=== PATIENT | male | born 1960 | race Caucasian/White ===

== ENCOUNTER → 2017-04-01 | Outpatient (CLI) | payer BC | END | disposition home or self-care (01) | LOC: GMAB 11:19 | PROVIDERS: ATTEND Family Medicine | DX: Z00.00 Encounter for general adult medical examination without abnormal findings (principal) ==

== ENCOUNTER → 2018-02-17 | Outpatient (CLI) | payer BC ==
--- NOTE | 2018-02-18 09:34 | MRI ---
EXAM DESCRIPTION: Abdomen w/wo Contrast CLINICAL HISTORY: 57 years Male, CIRRHOSIS OF LIVER COMPARISON: None. TECHNIQUE: MRI of the liver was performed without and with gadolinium contrast. FINDINGS: Coronal images show elevated left hemidiaphragm and enlarged spleen. Spleen measures 17.9 cm in length with no focal splenic lesion. Liver is smaller measuring 15.9 cm in length. Clinical history is hepatic cirrhosis. Normal orientation of the mesenteric vessels with normal bowel loops. Normal appearance the kidneys. No abnormality of the spine. Gallbladder is distended and fluid-filled with multiple small stones in the region of the neck. There is a small amount of fluid around the right lobe of the liver. Gallbladder wall appears high in signal intensity suggesting gallbladder edema. Acute cholecystitis must be considered with this appearance although cirrhosis with ascites might cause the same appearance. Prominent common hepatic duct measures 8 mm but this appears to taper distally through the head of the pancreas. No intraductal stone is evident. No significant intrahepatic bile duct dilatation. No edema around the pancreas. Positive flow void in the portal vein. Splenic vein appears somewhat small especially for the size of the spleen. Tiny renal cysts are present. No focal liver lesion to suggest complicating neoplasm. Stones are seen in the gallbladder neck but not in the cystic duct. Small amount of fluid around liver and spleen is noted and there are edematous changes around the second and third portions of the duodenum. Dual phase axial and coronal T1 gradient echo images are obtained. Signal loss is not significant in the hepatic parenchyma on the opposed phase images. No restricted diffusion in the liver. ADC mapping is negative. Pre and postcontrast images are evaluated. In the arterial phase, there is normal renal enhancement with normal upper abdominal arterial enhancement. Early moire pattern of the spleen is normal. Normal enhancement of the pancreas. No focal arterialization within the liver. Portal venous phase images show normal hepatic parenchymal enhancement. Normal enhancement of portal vein and hepatic veins. Three-minute delay images show normal visceral enhancement of liver, spleen, kidneys and pancreas. 10 minute delay images show micronodular pattern of the liver with slight liver surface irregularity. Enhancing vessels medial to the spleen are noted with evidence of splenorenal renal shunt. These are findings consistent with portal hypertension. A prominent recanalized periumbilical vein is also noted anteriorly. Patchy atelectasis in the right lower lobe is seen. Left hemidiaphragm is elevated. IMPRESSION: Distended gallbladder with stones. Correlate with other studies. Small amount of free fluid around the liver and spleen consistent with ascites. Cirrhotic liver with no focal hepatic lesion. Splenomegaly. Electronically signed by: Dave Tello MD 02/18/2018 9:31 AM CDT
== END ==
LOC: MRI 08:44
DX: K74.69 Other cirrhosis of liver (principal); I85.10 Secondary esophageal varices without bleeding; K80.20 Calculus of gallbladder without cholecystitis without obstruction

== ENCOUNTER → 2018-06-09 | Outpatient (CLI) | payer BC | LOC: GMAE 12:20 | PROVIDERS: ATTEND Family Medicine | DX: Z00.00 Encounter for general adult medical examination without abnormal findings (principal) ==

== ENCOUNTER → 2018-08-05 | Outpatient (CLI) | payer BC ==
--- NOTE | 2018-08-05 13:39 | US ---
EXAM DESCRIPTION: Liver CLINICAL HISTORY: 57 years Male, CIRRHOSIS COMPARISON: None. FINDINGS: Visualized portions of the pancreas are unremarkable. Liver is slightly coarsened in texture and appears normal to small in size. Question mild surface irregularity consistent with the clinical history of cirrhosis. Left lobe is not well seen. No focal lesion in the right lobe. No intrahepatic bile duct dilatation. Normal color flow in the main portal vein with a diameter of 1.3 cm which is normal. Liver length of 13.4 cm is within normal limits. No gallstones in the gallbladder. Common duct is normal in caliber 2.6 mm. The right kidney appears normal measuring 10.2 cm in length. Normal cortical thickness and echogenicity. IMPRESSION: No acute upper abdominal process. Electronically signed by: Dave Tello MD 08/05/2018 1:37 PM CDT
== END ==
LOC: US 08:00
DX: K74.69 Other cirrhosis of liver (principal); R18.8 Other ascites; I85.10 Secondary esophageal varices without bleeding

== ENCOUNTER → 2019-02-01 | Outpatient (CLI) | payer BC ==
--- NOTE | 2019-02-01 11:24 | US ---
EXAM DESCRIPTION: Abdomen,Complete: Ultrasound. CLINICAL HISTORY: K74.69 COMPARISON: None Available. TECHNIQUE: Transabdominal scannin-dimensional and Doppler modes. FINDINGS: Gallbladder: Multiple echogenic stones in the neck with posterior acoustic shadowing. Diameter 2 larger stones 6.2 x 5.5 mm. Nontender patient with transducer pressure. Thickened wall 3.8 mm. No surrounding fluid. Common bile duct: 7.3 mm is dilated. Liver: Long axis right lobe 12.6 cm. Coarse echogenicity with shadowing posteriorly. Normal flow direction hepatic and portal veins. Minimal lobulation of the capsule. No ascites Pancreas: Not well seen. Duct not visualized.. Abdominal aorta: Normal caliber from the proximal segment to the distal bifurcation. IVC: visualized; normal caliber. Spleen normal echogenicity; long axis measurement is 14.4 cm. Possible slight enlargement. Right kidney: 9.9 cm long axis. Normal cortical thickness and echogenicity. Normal vascularity. No hydronephrosis or perinephric fluid. Left kidney: 10.6 cm long axis. Normal cortical thickness with heterogeneous hypoechoic echogenicity. Normal vascularity. No hydronephrosis or perinephric fluid. IMPRESSION: 1. Multiple echogenic stones in the neck of the gallbladder, largest diameter 6.2 mm. Wall thickening could indicate cholecystitis. No pericholecystic fluid. Nontender with transducer pressure. Common bile duct dilated. Consider radionuclide hepatobiliary image study. 2. Small cirrhotic liver with minimal lobulation of the capsule. No ascites. Heterogeneous echotexture. Normal vascularity. Pancreas was not visualized. 3. Mild splenomegaly with normal echogenicity. 4. Normal caliber of the abdominal aorta and IVC. 5. Heterogeneous echogenicity of the left renal cortex with normal thickness and otherwise unremarkable. Right kidney negative. Electronically signed by: Baldemar Acosta MD 02/01/2019 11:21 AM [facility]
== END ==
LOC: US 08:08
DX: K74.69 Other cirrhosis of liver (principal); I85.10 Secondary esophageal varices without bleeding; R18.8 Other ascites; K80.20 Calculus of gallbladder without cholecystitis without obstruction

== ENCOUNTER → 2019-06-20 | Outpatient (CLI) | payer BC | LOC: GMAE 10:30 | PROVIDERS: ATTEND Family Medicine | DX: Z00.00 Encounter for general adult medical examination without abnormal findings (principal) ==

== ENCOUNTER → 2019-09-08 | Outpatient (CLI) | payer BC ==
--- NOTE | 2019-09-08 14:20 | CT ---
EXAM DESCRIPTION: Abdomen w/wo Contrast CLINICAL HISTORY: 58 years Male, OTHER ASCITES, OTHER CIRRHOSIS OF LIVER COMPARISON: Ultrasound abdomen dated 02/01/2019. TECHNIQUE: Contiguous axial images through the abdomen were obtained before and after intravenous contrast administration. Sagittal and coronal reconstructions were reviewed. This exam was performed according to our departmental dose-optimization program, which includes automated exposure control, adjustment of the mA and/or kV according to patient size and/or use of iterative reconstruction technique. FINDINGS: Consolidative airspace opacities in lingula and left lower lobe most likely represent atelectasis. Minimal subsegmental atelectasis is noted in the right middle lobe and right lower lobe as well. The liver is shrunken in size with a nodular contour, consistent with cirrhosis. Multiple gallstones are identified. The pancreas appears normal. The spleen is enlarged in size measuring 18.3 x 8.7 x 11.3 cm. Bilateral adrenal glands and kidneys appear normal. Small hiatal hernia with reflux. The stomach is not well-distended limiting detailed evaluation. The small bowel loops appear normal. Visualized colon demonstrates moderate amount of fecal material, consistent with constipation. The appendix appears normal. The abdominal aorta demonstrates mild atherosclerosis. The inferior vena cava is normal in size and caliber. Few subcentimeter retroperitoneal and mesenteric lymph nodes are identified. Recanalized periumbilical vein is noted. There is evidence of splenorenal shunt. The visualized bones demonstrate mild degenerative changes. IMPRESSION: 1. Cirrhotic liver with mild splenomegaly. 2. Cholelithiasis. 3. Recanalized paraumbilical vein and splenorenal shunt are suggestive of portal hypertension. Electronically signed by: Sebastien Johnson MD 09/08/2019 2:19 PM CDT
== END ==
LOC: CT 08:00
DX: R18.8 Other ascites (principal); K74.69 Other cirrhosis of liver; I85.10 Secondary esophageal varices without bleeding; K74.60 Unspecified cirrhosis of liver; R16.1 Splenomegaly, not elsewhere classified; Z96.89 Presence of other specified functional implants

== ENCOUNTER → 2020-06-21 | Outpatient (CLI) | payer BC | LOC: GMAE 10:42 | PROVIDERS: ATTEND Family Medicine | DX: Z00.00 Encounter for general adult medical examination without abnormal findings (principal) ==